=== PATIENT | female | born 1980 | race American Indian/Alaskan Native ===

== ENCOUNTER 2019-05-27 14:24 | Outpatient (CLI) | payer OTHER ==
[2019-05-27] MEDS ORDERED: ALBUTEROL 2.5 MG/3 ML NEBU IH ONE (15:42)
== END 2019-05-27 14:25 | disposition home or self-care (01) ==
LOC: PF 14:24
PROVIDERS: ATTEND Internal Medicine
DX: J40 Bronchitis, not specified as acute or chronic (principal); E66.9 Obesity, unspecified; E28.2 Polycystic ovarian syndrome
CPT/HCPCS: 94060; 94640; 94729